=== PATIENT | male | born 1960 | race Hispanic/Latino ===

== ENCOUNTER 2020-02-09 01:03 | Inpatient (IN) | payer OTHER, SELFPAY ==
[2020-02-09] VITALS (21 sets, daily range): BP systolic 105–129; BP diastolic 59–81; PULSE 54–99; RESP 17–20; TEMP 35.8–36.8; O2SAT 96–100; BMI 28.8
--- NOTE | 2020-02-09 | EST_ITS ---
Patient Info Name: Anirudh Phelan Age: 59 years : 1960 Gender: Male Ht: 66 in Wt: 179 lbs BSA: 1.97 m2 Exam Date: 02/09/2020 3:01 PM Exam Location: [facility] Stress Patient Status: Inpatient Admit Date: 02/09/2020 Staff Ordering Physician: Obey Boudreaux MD Attending Provider: Marcela Sloan DO Exercise Technologist: Katja Thornton RDCS Exam Type: CA stress drea w NM Study Info Indications R07.9 - Chest pain, unspecified A regadenoson stress test was performed. Summary 1. Please correlate with nuclear medicine images, reported separately. 2. No abnormal ST-T wave changes with lexiscan. Protocol: Lexiscan Stress ECG Details Stage: REST Duration (min): 1 min : 1 sec HR (bpm): 68 SBP (mmHg): 121 DBP (mmHg): 75 Stage: REST Duration (min): 1 min : 58 sec HR (bpm): 88 SBP (mmHg): 121 DBP (mmHg): 75 Stage: STAGE 1 Duration (min): 0 min : 59 sec HR (bpm): 103 SBP (mmHg): 134 DBP (mmHg): 74 Stage: RECOVERY Duration (min): 1 min : 0 sec HR (bpm): 86 SBP (mmHg): 137 DBP (mmHg): 72 Stage: RECOVERY Duration (min): 2 min : 0 sec HR (bpm): 82 SBP (mmHg): 137 DBP (mmHg): 72 Stage: RECOVERY Duration (min): 3 min : 0 sec HR (bpm): 92 SBP (mmHg): 128 DBP (mmHg): 77 Stage: RECOVERY Duration (min): 3 min : 54 sec HR (bpm): 83 SBP (mmHg): 128 DBP (mmHg): 77 Rest HR: 88 bpm Peak HR: 103 bpm Rest Sys BP: 121 mmHg Peak Sys BP: 137 mmHg Max Pred HR: 163 bpm % Max Pred HR: 63 % Target HR: 139 bpm Max RPP: 14,111 bpm*mmHg Target HR Summary: Hemodynamic response to exercise was normal BP Response: Normal blood pressure response Termination Reason: Completed protocol Cardiac Symptoms: None Total Time: 1 min : 0 sec Rest Rivas BP: 75 mmHg Peak Rivas BP: 72 mmHg Total Dose: 0.4 mg Resting ECG Normal sinus rhythm - normal ECG. Stress ECG No abnormal ST/T wave changes with exercise. Arrhythmias None. Report Signatures
--- NOTE | ~2020-02-09 | NM_ITS ---
EXAMINATION: NM drea stress w perfusion DATE: 02/09/2020 16:01 INDICATION: Chest pain, stenting in 2018 TECHNIQUE: Rest images were obtained following intravenous administration of 9 mCi Tc99m tetrofosmin (Myoview). The patient was infused intravenously with Lexiscan (regadenoson). Then, 27 mCi Tc99m tetr ofosmin (Myoview) was administered intravenously, and stress images were obtained. Data was reconstru cted into short axis and horizontal and vertical long axis SPECT images. Gated SPECT images were also obtained. COMPARISON: None. FINDINGS: There is a moderate size reversible perfusion abnormality in the lateral wall of the left v entricle. There is no segmental wall motion abnormality. Left ventricular ejection fraction measure s 58%. IMPRESSION: 1. Moderate reversible perfusion in the lateral wall of the left ventricle. 2. Mildly decreased left ventricular ejection fraction measuring 58%. Reviewed, dictated and finalized at location A.
--- NOTE | ~2020-02-09 | XR_ITS ---
EXAMINATION: XR chest 2V DATE: 02/09/2020 01:40 INDICATION: Chest pain. TECHNIQUE: Frontal and lateral views of the chest were obtained. COMPARISON: Chest 2 views 08/20/2018 FINDINGS: The chest demonstrates clear lungs without pneumonia, pleural effusion, or pneumothorax. Th e heart size is normal. IMPRESSION: 1. No acute cardiopulmonary disease. Reviewed, dictated and finalized at location A.
--- NOTE | 2020-02-09 01:06 | ECG_ITS ---
Measurements Intervals [place] Rate: 64 P: 12 MA: 184 QRS: -21 QRSD: 83 T: 12 QT: 367 QTc: 379 Interpretive Statements SINUS RHYTHM NONSPECIFIC ST ELEVATION IN ANTERIOR LEADS- PROBABLY EARLY REPOLARIZATION BORDERLINE T WAVE ABNORMALITY- INFERIOR LEADS BASELINE WANDER- I, III, V4-V5 BORDERLINE ECG Electronically Signed On 02-09-2020 6:44:52 CDT by Alex Ortiz D.O.
[2020-02-09 01:18] LABS: Basophils Percent Auto 0.5 % (0.2-1.2); Eosinophils Absolute Auto 0.3 K/mm3 (0-0.3); Eosinophils Percent Auto 3.4 % (0-4.4); Hematocrit 44.6 % (42.0-52.0); Hemoglobin 14.8 g/dL (14.0-18.0); Immature Granulocyte Absolute 0.04 K/mm3 (0.00-0.031); Immature Granulocyte Percent A 0.5 % (0-0.5); Lymphocytes Absolute Auto 2.24 K/mm3 (0.9-3.2); Lymphocytes Percent Auto 30.7 % (18.3-44.2); Mean Corpuscular HGB Conc 33.2 g/dl (32-36); Mean Corpuscular Hemoglobin 28.4 pg (26-34); Mean Corpuscular Volume 85.6 fl (80-100); Mean Platelet Volume 10.2 fl (7.4-10.4); Monocytes Absolute Auto 0.6 K/mm3 (0.1-0.6); Monocytes Percent Auto 8.1 % (2.6-8.5); Neutrophils Absolute Auto 4.1 K/mm3 (1.3-6.7); Neutrophils Percent Auto 56.8 % (45.5-73.1); Platelet Count Result 212 k/mm3 (150-375); Red Blood Count 5.21 M/mm3 (4.6-6.20); Red Cell Distribution Width 12.1 % (11.5-14.5); White Blood Count 7.3 K/mm3 (4.5-10.0)
[2020-02-09 01:27] LABS: INR 0.9; Prothrombin Time 11.5 Seconds (11.1-14.7)
[2020-02-09 01:34] LABS: Anion Gap 6 mmol/L (8-16); Blood Urea Nitrogen 16 mg/dL (9-20); Calcium 9.1 mg/dL (8.4-10.2); Carbon Dioxide 28 mmol/L (22-30); Chloride 101 mmol/L (98-107); Estimated CRCL calculation 80 ml/min; Estimated Glomerular Filt Rate > 60; Glucose 264 mg/dL (75-110); Potassium 3.3 mmol/L (3.4-5.0); Sodium 135 mmol/L (137-145)
[2020-02-09 01:45] LABS: Troponin I < 0.012 ng/mL (0.000-0.034)
--- NOTE | 2020-02-09 02:15 | ED.CHESTPAIN ---
HPI - Chest Pain General Chief Complaint: Chest Pain Stated Complaint: cp Time Seen by Provider: 02/09/20 02:14 Source: patient Mode of arrival: ambulatory Limitations: no limitations History of Present Illness MD complaint: chest pain and chest discomfort Onset (ago): hour(s) (2) Prior episodes: No Onset: during rest Pain location: substernal Pain radiation: none Severity: moderate Quality: tightness Relieving factors: nothing Exacerbating factors: nothing Associated symptoms: palpitations Treatment prior to arrival: none Related Data Home Medications Medication Instructions Recorded Confirmed aspirin [Aspirin Childrens] 81 mg PO DAILY 02/09/20 atorvastatin 80 mg PO HS 02/09/20 cyclobenzaprine 10 mg PO BID PRN 02/09/20 insulin detemir U-100 [Levemir 28 unit SUBCUT HS 02/09/20 FlexTouch U-100 Insuln] metformin 1,000 mg PO BID 02/09/20 nitroglycerin 0.4 mg SUBLINGUAL Q5M PRN 02/09/20 Allergies Allergy/AdvReac Type Severity Reaction Status Date / Time No Known Allergies Allergy Unknown Unverified 08/20/18 19:33 Review of Systems Review of Systems: All systems reviewed & are unremarkable except as noted in HPI and below Constitutional: Constitutional: Denies body ache(s), Denies chills, Denies excessive sweating, Denies fatigue, Denies fever(s), Denies headache(s), Denies lethargy, Denies malaise, Denies weakness and Denies weight loss Eyes: Eyes: Denies blurry vision, Denies change in vision and Denies loss of vision ENT: Denies dizziness, Denies ear discharge, Denies headache(s), Denies lip swelling, Denies epistaxis, Denies nasal congestion, Denies neck pain, Denies throat swelling and Denies tongue swelling Cardiovascular: Cardiovascular: Denies chest pain at rest, Denies chest pain with activity, Denies diaphoresis, Denies rapid heart rate, Denies edema, Denies irregular heart rhythm, Denies lightheadedness, Denies palpitations and Denies dyspnea on exertion Respiratory: Respiratory: Denies chest congestion, Denies cough and Denies hemoptysis Gastrointestinal: Gastrointestinal: Denies abdominal pain, Denies melena, Denies hematochezia, Denies diarrhea, Denies nausea, Denies vomiting and Denies hematemesis Musculoskeletal: Musculoskeletal: Denies abnormal gait, Denies deformity, Denies joint swelling, Denies limited range of motion, Denies neck pain and Denies numbness Neurologic: Denies Abnormal speech present, Denies abnormal gait, Denies confusion, Denies dizziness, Denies headache(s), Denies focal weakness, Denies loss of vision, Denies numbness, Denies Other visual disturbances, Denies Sensory deficit (Neuro) and Denies weakness Psychiatric: Psychiatric: Denies confusion, Denies depression, Denies auditory hallucinations, Denies homicidal ideation and Denies suicidal ideation Endocrine: Endocrine: Denies cold intolerance, Denies excessive sweating, Denies fatigue, Denies heat intolerance and Denies palpitations Hematologic/Lymphatic: Hematologic/Lymphatic: Denies easy bleeding and Denies easy bruising Allergic/Immunologic: Allergic/Immunologic: Denies lip swelling, Denies throat swelling and Denies tongue swelling Exam Const: General: cooperative, healthy appearing, comfortable, no acute distress, well developed, alert and awake; No confusion Orientation/consciousness: oriented to person, oriented to place, oriented to time, patient oriented x3 and No confusion Limitations: no limitations HENMT: Head: normal to inspection, normocephalic and atraumatic Ears: hearing grossly normal bilaterally, TM normal on the right and TM normal on the left General nose exam: Normal external nose present, Normal nares present and No nasal discharge present Face and sinus: normal facial exam Mouth: Yes Normal oral and palatal mucosa present, Yes lip normal, Yes tongue normal and Yes oropharynx normal Throat: posterior oropharynx normal, tonsils normal and uvula midline Eyes: General: appearance normal, both eye
--- NOTE | 2020-02-09 04:10 | PC.NURSE ---
called [facility] to transport patient. ETA [phone]
[2020-02-09] MEDS: NITROGLYCERIN OINTMENT 1 INCH DOSE TRANSDERM (04:48)
[2020-02-09 05:23] LABS: Troponin I < 0.012 ng/mL (0.000-0.034)
--- NOTE | 2020-02-09 06:30 | ADMGEN ---
This patient, Anirudh Phelan, was admitted to IMU Room 213621. Patient/family oriented to hospital policies and general routines including ID bracelet, bed and alarms, visiting hours, pain management, procedures, bathroom and other care routines, personal items, smoking policy, room service/diet, and visiting hours. Valuables list has been completed. Information on how to activate the Rapid Response Team has been discussed. Patient/Family are encouraged to report perceived risks to care and to ask questions if they do not understand what they are told or what they should do.
[2020-02-09 07:42] LABS: Glucose Point of Care 179 (65-105)
[2020-02-09 08:17] LABS: Troponin I < 0.012 ng/mL (0.000-0.034)
--- NOTE | 2020-02-09 09:00 | PM.IMHP ---
H&P: HPI History of Present Illness Date/Time: 02/09/20 09:00 Chief complaint: Chest Pain Narrative: Date of visit 02/08 830. Anirudh Phelan is a 59 year old male status post stenting to the circumflex artery 12/04 with essentially normal other arteries who was awakened from sleep with substernal burning sensation radiating toward his left shoulder accompanied by mild shortness of breath and heart racing. He took 2 nitroglycerin 5 minutes apart and pain was little bit better but was concerned and called EMS. But time he arrived emergency room his pain has subsided. He thinks the nitroglycerin were probably old but he did get a mild headache. Never has reflux or GI symptoms. Cannot totally relate if it was the same kind of discomfort he had when he was stent was placed in 2018. he does admit to not taking his aspirin or statin and had been on a beta-nikky post stent but none for some time. 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 or chest discomfort Review of Systems Review of Systems: Narrative: constitutional weight steady appetite good no fever no chills Eye no double vision or scotoma mouth no pharyngitis laryngitis pulmonary no shortness of breath wheezing or cough CV as above no edema some no dysuria no hematuria muscle skeletal no particular joint discomfort GI no melena medication diarrhea neuropsych no seizures no syncope integument no skin breakdown did have a contact dermatitis rash in left leg psych no depression PMFSH Past Medical History Medical History (Updated 02/09/20 @ 09:14 by Obey Boudreaux MD) Tear of pronator muscle of left upper extremity Surgical History Surgical History (Updated 02/09/20 @ 09:06 by Obey Boudreaux MD) Stented coronary artery Family History Family History (Updated 02/09/20 @ 06:37 by Judie Dwyer RN) Father , age 65 Kidney failure Sibling Diabetes mellitus Social History Social History Smoking status: Former smoker Smoking end date: 11/06/16 Alcohol intake: current Drinks per week: 6 Substance use: never Substance use type: does not use Gender identity (if verbalized by the patient): Male Spiritual care concerns: No Meds Home Medications and Allergies Home Medications Medication Instructions Recorded Confirmed Type aspirin [Aspirin Childrens] 81 mg PO DAILY 02/09/20 02/09/20 History atorvastatin 80 mg PO HS 02/09/20 02/09/20 History insulin detemir U-100 [Levemir 28 unit SUBCUT HS 02/09/20 02/09/20 History FlexTouch U-100 Insuln] metformin 1,000 mg PO BID 02/09/20 02/09/20 History nitroglycerin 0.4 mg SUBLINGUAL Q5M PRN 02/09/20 02/09/20 History Allergies Allergy/AdvReac Type Severity Reaction Status Date / Time No Known Allergies Allergy Unknown Unverified 08/20/18 19:33 Vital Signs Vital Signs - 24 hr 02/09/20 01:12 02/09/20 02:27 02/09/20 02:30 Temperature 36.4 C L Pulse Rate 69 59 L 58 L Respiratory Rate 18 18 Blood Pressure 129/72 114/80 Pulse Oximetry 100 96 98 02/09/20 03:15 02/09/20 04:43 02/09/20 05:15 Temperature 36.8 C Pulse Rate 56 L 54 L 59 L Respiratory Rate 17 17 17 Blood Pressure 116/78 115/81 110/81 Pulse Oximetry 96 99 97 02/09/20 06:28 02/09/20 06:30 02/09/20 06:54 Temperature 36.6 C Pulse Rate 68 63 68 Respiratory Rate 20 20 Blood Pressure 115/60 Pulse Oximetry 98 98 02/09/20 08:14 Temperature 35.8 C L Pulse Rate 66 Respiratory Rate 18 Blood Pressure 115/70 Pulse Oximetry 100 Exam Narrative: Exam Narrative: blood pressure 114/70 pulse 66 route cooler respiration 18 per minute saturating 100% on room air afebrile pupils equal reactive light sclera anicteric mouth normal neck is supple no adenopathy thyromegaly carotid bruits lungs clear CV regular rate rhythm no murmurs or gallops abdomen soft nontender bowel sounds normal active extremities without
[2020-02-09] MEDS: POTASSIUM CHLORIDE 20 MEQ TABLET 40 MEQ PO (09:33)
[2020-02-09] MEDS: ASPIRIN 81 MG CHEWABLE TABLET PO (09:39)
[2020-02-09 11:16] LABS: Troponin I < 0.012 ng/mL (0.000-0.034)
[2020-02-09 16:37] LABS: Glucose Point of Care 116 (65-105)
[2020-02-09 20:10] LABS: Glucose Point of Care 228 (65-105)
[2020-02-09] MEDS: INSULIN DETEMIR 100 UNITS/ML 28 UNITS SUB-Q (21:26)
[2020-02-09] MEDS: ATORVASTATIN 40 MG TABLET 80 MG PO (21:26)
[2020-02-10] VITALS (34 sets, daily range): BP systolic 88–122; BP diastolic 52–82; PULSE 31–84; RESP 12–18; TEMP 36.2–36.9; O2SAT 96–100
[2020-02-10 07:55] LABS: Glucose Point of Care 148 (65-105)
--- NOTE | 2020-02-10 09:29 | PM.CNCAR ---
Assessment and Plan Additional Plan 59-year-old man who is known to have coronary disease had interventional revascularization of his mid circumflex at the OM/posterior bifurcation 2 years ago. He presents with symptoms that are reminiscent of that event fortunately his troponins are negative but his nuclear stress test suggested ischemic defect in the same vascular distribution. For this reason follow-up angiography has been recommended. The patient is agreeable to proceed with that shortly this morning. Cali Núñez MD [facility] History of Present Illness History of Present Illness Consult date/time: Date of service:02/10/20 09:29 Consult reason: chest pain Reason For Visit: Chest Pain Narrative: This is a 59-year-old man of seeing at the request of the hospitalist today because of some chest pain and abnormalities noted yesterday on a nuclear stress test. The patient is known to have coronary artery disease and follows with Dr. Iniguez of our practice. He noted the onset of some retrosternal to left precordial chest heaviness the night before last while he was in bed. The discomfort mild but he says reminiscent in character of previous ischemic chest pain that he experienced about 2 years ago. The symptom was not associated with any diaphoresis nausea vomiting or shortness of breath. It waxed and waned but because of this he did not wish to take any chances so he came to the emergency room for evaluation in the emergency room he was given some nitroglycerin he says the pain faded away it was unclear to him if it resolved because of the nitroglycerin or was resolving on its own. He was admitted for further evaluation and management. His electrocardiograms were unremarkable his biomarkers have been normal x4 sets. He has a history of coronary artery disease presenting initially in November of 2017 with acute coronary syndrome. At that time he had significant ischemic chest pain his electrocardiogram was benign he did have a rise in his troponin up to 25. He underwent angiography the following day and was found to have a high-grade stenosis in the mid circumflex at a bifurcation site of the OM and the posterior branch he underwent stenting of this with a 3 x 18 mm Xience device with good anatomical result. He has been doing well since then his follow-up appointments in the office have been with the nurse practitioner according to those notes he has been doing fairly well. After he presented with the symptoms he had a Lexiscan nuclear stress test on yesterday which according to the radiology report shows and reversible ischemic defect in the lateral wall. As a result of this I recommended to the patient proceeding with a follow-up angiogram since this result calls into question the result of his circumflex intervention. Review of Systems Constitutional: Constitutional: Reports no additional constitutional complaints Eyes: Eyes: Reports no additional eye complaints ENT: Reports system reviewed and no additional complaints, except as documented Cardiovascular: Cardiovascular: Reports as per HPI and Reports chest pain Respiratory: Respiratory: Reports no additional respiratory complaints Gastrointestinal: Gastrointestinal: Reports no additional gastrointestinal complaints Musculoskeletal: Musculoskeletal: Reports no additional musculoskeletal complaints Integumentary/Breasts: Skin/Breast: Reports system reviewed and no additional complaints, except as docu Neurologic: Reports system reviewed and no additional complaints, except as documented Endocrine: Endocrine: Reports no additional endocrine complaints Hematologic/Lymphatic: Hematologic/Lymphatic: Reports no additional hematologic/lymphatic complaints Allergic/Immunologic: Allergic/Immunologic: Reports no additional allergic/immunologic complaints [facility] Past Medical History Medical History (Updated 02/09/20 @ 09:14 by Obey Boudreaux MD) Tear of pronator muscle of left upper
[2020-02-10] MEDS: ASPIRIN 81 MG CHEWABLE TABLET PO (09:34)
--- NOTE | 2020-02-10 09:34 | WPDMODSED ---
Moderate Sedation Note-Pt Data Patient Data Diagnosis: coronary artery disease with previous circumflex PCI chest pain event reminiscent of previous ischemia abnormal nuclear stress test Present Complaint: 59-year-old man with previous circumflex intervention in November of 2017 in the setting of non ST elevation [place]. He presents with an episode of pain that is reminiscent of that and a nuclear stress test suggesting ischemia in this vascular distribution Procedure to be performed/Plan: follow-up coronary angiogram Allergies Allergy/AdvReac Type Severity Reaction Status Date / Time No Known Allergies Allergy Unknown Unverified 08/20/18 19:33 Home Medications Medication Instructions Recorded Confirmed Type aspirin [Aspirin Childrens] 81 mg PO DAILY 02/09/20 02/09/20 History atorvastatin 80 mg PO HS 02/09/20 02/09/20 History insulin detemir U-100 [Levemir 28 unit SUBCUT HS 02/09/20 02/09/20 History FlexTouch U-100 Insuln] metformin 1,000 mg PO BID 02/09/20 02/09/20 History nitroglycerin 0.4 mg SUBLINGUAL Q5M PRN 02/09/20 02/09/20 History Current Medications: Active Medications Acetaminophen (Tylenol Tablet) 650 mg PO Q6H PRN PRN Reason: Mild Pain (1-3) or Fever Aspirin (Aspirin Chewable) 81 mg PO DAILY [facility] Last Admin: 02/09/20 09:39 Dose: 81 mg Documented by: Atorvastatin Calcium (Lipitor) 80 mg PO HS [facility] Last Admin: 02/09/20 21:26 Dose: 80 mg Documented by: Insulin Detemir (Levemir) 28 units SUB-Q [facility] Last Admin: 02/09/20 21:26 Dose: 28 units Documented by: Nitroglycerin (Nitrostat Subl 0.4 Mg (1/150)) 0.4 mg SUBLINGUAL Q5M PRN PRN Reason: Chest Pain Sedation/Anesthesia: No previous sedation/anesthesia problems (including family history). [facility] Past Medical History Medical History (Updated 02/09/20 @ 09:14 by Obey Boudreaux MD) Tear of pronator muscle of left upper extremity Surgical History Surgical History (Updated 02/09/20 @ 09:06 by Obey Boudreaux MD) Stented coronary artery Family History Family History (Updated 02/09/20 @ 09:07 by Obey Boudreaux MD) Father , age 65 Kidney failure Sibling Diabetes mellitus Social History Social History Smoking status: Former smoker Smoking end date: 11/06/16 Alcohol intake: current Drinks per week: 6 Substance use: never Substance use type: does not use Gender identity (if verbalized by the patient): Male Spiritual care concerns: No Mod Sed Physical Exam Physical Exam Pre Procedural Exam: Normal: Appearance, Neck, Throat, Airway, Lungs, Heart Size, Heart Rate, Heart Rhythm, Neuro Exam and Extremities and Variation: Appearance Hours since solid foods: 14 Hours since liquid intake: 14 Internal Medicine - PN: Obj Da Vital Signs Vital Signs: Vital Signs - 24 hr 02/09/20 10:00 02/09/20 12:00 02/09/20 12:50 Temperature 36.1 C L Pulse Rate 60 58 L 64 Respiratory Rate 20 Blood Pressure 105/61 Pulse Oximetry 96 02/09/20 14:00 02/09/20 16:33 02/09/20 16:48 Temperature 36.4 C Pulse Rate 64 72 64 Respiratory Rate 20 Blood Pressure 113/75 Pulse Oximetry 100 02/09/20 18:00 02/09/20 20:00 02/09/20 22:00 Temperature 36.5 C Pulse Rate 62 67 71 Respiratory Rate 20 Blood Pressure 113/59 L Pulse Oximetry 97 02/09/20 23:51 02/10/20 00:00 02/10/20 02:00 Temperature 36.5 C Pulse Rate 99 62 61 Respiratory Rate 18 18 Blood Pressure 128/78 Pulse Oximetry 99 99 02/10/20 04:00 02/10/20 06:00 02/10/20 08:00 Temperature 36.6 C 36.9 C Pulse Rate 56 L 54 L 66 Respiratory Rate 18 16 Blood Pressure 120/79 119/79 Pulse Oximetry 99 98 Intake/Output Intake/Output: Intake & Output 02/07/20 02/08/20 02/09/20 02/10/20 23:59 23:59 23:59 23:59 Intake Total 360 350 Output Total 800 Balance 360 -450 Meds/Results Medications: Active Medications Generic Name Dose Route Start Last Admin Trade Name Freq PRN Reason Stop D
--- NOTE | 2020-02-10 10:21 | PC.NURSE ---
0925- To cardiac supervisor cytogenetic laboratory for procedure via stetcher accompanied by RN's
--- NOTE | 2020-02-10 10:40 | ECG_ITS ---
Measurements Intervals [place] Rate: 56 P: 33 [place]: 185 QRS: -14 QRSD: 91 T: -6 QT: 400 QTc: 389 Interpretive Statements SINUS BRADYCARDIA EARLY PRECORDIAL R/S TRANSITION BORDERLINE T WAVE ABNORMALITY- INFERIOR LEADS BORDERLINE ECG Electronically Signed On 02-10-2020 12:18:16 CDT by Alex Ortiz D.O.
--- NOTE | 2020-02-10 10:43 | WPDCARDPROC ---
Cardiac Cath Procedure Note Date of procedure:: 02/10/20 Performing physician:: Cali Núñez MD Indication:: coronary artery disease with recurrent ischemic chest pain abnormal nuclear stress test indicating ischemia in the distribution of the circumflex, vessel intervened upon 2 years ago Brief clinical history:: this is a 59-year-old man with coronary disease received stent to the mid circumflex November of 2017. He came in with chest pain that is similar to his previous ischemic symptoms from that admission. The patient has no abnormalities of troponin and had a nuclear stress test yesterday with evidence of ischemia in the distribution of the circumflex. Procedure Procedure performed:: Coronary angiography PCI to the circumflex proximal to previous stent Sedation/Medication given:: fentanyl 50 mg Versed 2 mg case start time 10:04 a.m. case end time 10:37 a.m. sedation provided by Luciana Wood RN, trained observer Access site:: right femoral Estimated blood loss:: 15-20 cc Procedure note:: patient was brought to the cardiac catheterization lab in the postabsorptive state the right femoral triangle was prepared and draped in the usual sterile fashion anesthesia was provided with 1% lidocaine infiltrated locally using the modified Seldinger technique the right femoral artery was punctured and a 5 Nigerien vascular sheath was placed. I then engage inject the right coronary artery using a 5 Nigerien WRP catheter. The left coronary was engaged and injected using a 5 Nigerien JL4 catheter. Following this the cineangiograms were reviewed. PCI of the circumflex was recommended and carried out as detailed below. Prior to PCI the patient had the 5 Nigerien sheath changed over a guidewire for a 6 Nigerien. He was systemically anticoagulated with Angiomax and received a loading dose of 600 mg clopidogrel in the seed analysis laboratory assistant. Following the procedure the sheath was sutured into position he was taken to the holding area for post PCI recovery and sheath removal. Findings:: Central aortic pressure is 1 14/72. the left ventricle was not entered during this procedure the left main coronary artery is widely patent and of large caliber the LAD is a large caliber vessel extending down to around the apex the LAD and its branches are free of significant disease. There are minimal luminal irregularities noted in the mid LAD. The circumflex is a large caliber vessel giving rise to a very large OM branch and a posterior branch. The area stented was at the bifurcation of the posterior branch and the OM which remains widely patent with no loss of lumen. There is a modest stenosis angiographically prior to this stented area the region of some tortuosity. In the MERAZ caudal projection it appears to be hazy angiographically. In the regions where the vessel is well displayed it appears to have approximately 40%- 50% stenosis. The decision was made to intervene on this lesion since the patient has ischemic symptoms similar to his previous symptomatology and nuclear stress test findings yesterday indicating that this appears to be flow limiting despite is angiographically modest appearance. The left coronary artery was engaged using a 6 Nigerien CLS 3.5 guiding catheter I used a 0.014 BMW guidewire to wire the circumflex. The lesion was pre-dilated with a 3 x 20 mm emerge balloon and then stented using a 3.5 x 18 mm course 0 drug-eluting stent overlapping the old 3 mm stent slightly and inflated to 8 atmospheres. At the end of this the target lesion was widely patent with no residual stenosis dissection or distal embolization. It should be noted that when the circumflex was studied at with the BMW wire in the vessel there was a high-grade ostial stenosis which was angiographically normal to begin with this indicates the presence of pseudo lesion due to the guidewire in a tortuous vessel. Upon withdrawal of the wire this lesion was no longer visible. Conclusio
--- NOTE | 2020-02-10 15:34 | SUR.PHASEII ---
1345 Pt having vagal response to sheath pull at 1335, IVF wide open, 1mg Atropine given for olman in the 30's, cool wash cloths applied to pts neck and forehead, manual pressure continued to R groin by RN, pedal pulse remains palpable. 1352 pt no longer symptomatic and states he feeling better, R groin pressure continued and pt monitored closely.
--- NOTE | 2020-02-10 15:48 | PM.IMPN ---
Progress Note: A&P Assessment and Plan (1) Chest pain: Qualifiers: Ischemic chest pain type: stable angina pectoris Code(s): R07.9 - Chest pain, unspecified Status: Acute Assessment and Plan: chest pain in a man with known coronary disease who was not been taking his aspirin her statin. Troponins and EKG are normal but nuclear stress test Revealed ischemia in the distribution of circumflex artery which was stented prior. As above repeat catheterization today revealed stenotic area proximal to the stent which was stented also restarted aspirin and statin 02/08 relative bradycardia so no beta-nikky has been started (2) Diabetes mellitus: Code(s): E11.9 - Type 2 diabetes mellitus without complications Status: Acute Assessment and Plan: patient not that compliant and states last A1c was around 9. Continue the Levemir and and sliding scale while here (3) Hyperlipidemia: Code(s): E78.5 - Hyperlipidemia, unspecified Status: Acute Assessment and Plan: restarted statin 02/08 Subjective Date/time seen: 02/10/20 15:48 Interval history: Date of visit 02/09. 59-year-old diabetic status post circumflex stent in 11/2017 presented with substernal chest pressure relieved after 2 nitroglycerin. Nuclear stress test revealed ischemia lateral wall in distribution of the circumflex stent. Taken to medical laboratory manager today and found to have patent stent but proximal to it was at least 50% stenotic area which was stented. Exam Narrative: Exam Narrative: blood pressure 114/76 pulse 68 respiration 18 per minute saturating 100% on room air afebrile pupils equal reactive light neck is supple lungs clear CV regular rate rhythm no murmurs or gallops abdomen soft nontender bowel sounds normal active extremities without edema distal pulses are 2+, dorsalis pedis posterior tibial neuro alert pleasant cooperative no focal deficits integument faint drying rash left anterior she and Objective Data Vital Signs Vital Signs: Vital Signs - 24 hr 02/09/20 16:33 02/09/20 16:48 02/09/20 18:00 Temperature 36.4 C Pulse Rate 72 64 62 Respiratory Rate 20 Blood Pressure 113/75 Pulse Oximetry 100 02/09/20 20:00 02/09/20 22:00 02/09/20 23:51 Temperature 36.5 C 36.5 C Pulse Rate 67 71 99 Respiratory Rate 20 18 Blood Pressure 113/59 L 128/78 Pulse Oximetry 97 99 02/10/20 00:00 02/10/20 02:00 02/10/20 04:00 Temperature 36.6 C Pulse Rate 62 61 56 L Respiratory Rate 18 18 Blood Pressure 120/79 Pulse Oximetry 99 99 02/10/20 06:00 02/10/20 08:00 02/10/20 10:55 Temperature 36.9 C 36.8 C Pulse Rate 54 L 66 57 L Respiratory Rate 16 18 Blood Pressure 119/79 122/76 Pulse Oximetry 98 96 02/10/20 11:00 02/10/20 11:15 02/10/20 11:30 Temperature Pulse Rate 59 L 57 L 56 L Respiratory Rate 15 16 15 Blood Pressure 122/76 117/70 112/77 Pulse Oximetry 96 97 97 02/10/20 11:45 02/10/20 12:00 02/10/20 12:30 Temperature Pulse Rate 52 L 55 L 54 L Respiratory Rate 12 13 15 Blood Pressure 116/68 111/79 118/79 Pulse Oximetry 99 98 100 02/10/20 13:35 02/10/20 13:40 02/10/20 13:45 Temperature Pulse Rate 58 L 57 L 58 L Respiratory Rate 14 14 15 Blood Pressure 110/76 99/70 L 110/71 Pulse Oximetry 100 98 98 02/10/20 13:50 02/10/20 13:55 02/10/20 14:00 Temperature Pulse Rate 31 L 84 71 Respiratory Rate 15 16 15 Blood Pressure 88/52 L 104/70 114/73 Pulse Oximetry 100 100 02/10/20 14:05 02/10/20 14:10 02/10/20 14:20 Temperature Pulse Rate 69 68 69 Respiratory Rate 16 15 14 Blood Pressure 112/72 113/70 122/78 Pulse Oximetry 98 100 99 02/10/20 14:25 02/10/20 14:30 02/10/20 14:35 Temperature Pulse Rate 69 67 67 Respiratory Rate 12 17 15 Blood Pressure 118/76 120/75 119/75 Pulse Oximetry 100 100 100 02/10/20 14:44 02/10/20 15:00 02/10/20 15:15 Temperature Pulse Rate 67 64 64 Respiratory Rate 15 14 1
[2020-02-10 17:02] LABS: Glucose Point of Care 96 (65-105)
[2020-02-10] MEDS: ATORVASTATIN 40 MG TABLET 80 MG PO (21:03)
[2020-02-10] MEDS: INSULIN DETEMIR 100 UNITS/ML 28 UNITS SUB-Q (21:03)
[2020-02-10 21:51] LABS: Glucose Point of Care 221 (65-105)
[2020-02-11] VITALS (9 sets, daily range): BP systolic 117–123; BP diastolic 65–79; PULSE 55–99; RESP 16–18; TEMP 36.3–36.7; O2SAT 95–99
--- NOTE | 2020-02-11 05:11 | ECG_ITS ---
Measurements Intervals [place] Rate: 67 P: 34 WA: 181 QRS: -10 QRSD: 87 T: 16 QT: 358 QTc: 378 Interpretive Statements SINUS RHYTHM EARLY PRECORDIAL R/S TRANSITION ST ELEVATION IN ANTERIOR LEADS- PROBABLY EARLY REPOLARIZATION BORDERLINE T WAVE ABNORMALITY- INFERIOR LEADS BASELINE ARTIFACT- I, II, III, AVL, AVF BORDERLINE ECG Electronically Signed On 02-11-2020 11:13:25 CDT by Alex Ortiz D.O.
[2020-02-11 06:00] LABS: Anion Gap 4 mmol/L (8-16); Blood Urea Nitrogen 16 mg/dL (9-20); Calcium 8.7 mg/dL (8.4-10.2); Carbon Dioxide 29 mmol/L (22-30); Chloride 104 mmol/L (98-107); Estimated CRCL calculation 103 ml/min; Estimated Glomerular Filt Rate > 60; Glucose 173 mg/dL (75-110); Sodium 137 mmol/L (137-145)
[2020-02-11 08:13] LABS: Glucose Point of Care 146 (65-105)
[2020-02-11] MEDS: CLOPIDOGREL BISULFATE 75 MG TABLET PO (08:36)
[2020-02-11] MEDS: ASPIRIN 81 MG CHEWABLE TABLET PO (08:36)
--- NOTE | 2020-02-11 09:58 | PM.PNCARD ---
Progress Note: A&P Assessment and Plan (1) CAD (coronary artery disease) of artery bypass graft: Code(s): I25.810 - Atherosclerosis of coronary artery bypass graft(s) without angina pectoris Status: Acute Assessment and Plan: Known coronary disease with interventional revascularization of his mid circumflex at the OM/posterior bifurcation 2017. He presented with symptoms that are reminiscent of that event. Taken to the cardiac catheterization lab by Dr. Núñez on 02/10/2020 with the findings of: Coronary artery disease with previously stented mid circumflex which remains widely patent at the target lesion. Angiographically mild to moderate disease prior to this with stented area which presumably is flow-limiting given his symptoms and nuclear stress test findings this was treated with 3.5 x 18 mm Orsiro drug-eluting stent. No new disease is noted in the left main, LAD or right coronary arteries. Monitored overnight. No further chest discomfort. No arrhythmias on the monitor. Right groin site was without swelling or bleeding. No femoral bruit. Distal pulses intact. Additional Plan OK to discharge from cardiac standpoint. See discharge instructions for follow-up. Plan discussed with Dr. Noble 1005 02/11/2020 Subjective Date/time seen: 02/11/20 09:58 Interval history: Follow up for: abnormal stress test, known coronary artery disease, status post cardiac catheterization and stent placement 02/10/2020 Date of service: 02/11/2020 Subjective: Denied chest pain, pressure, tightness or squeezing. No burning. Denied shortness of breath with exertional activity. Review of Systems Constitutional: Constitutional: Reports no additional constitutional complaints Eyes: Eyes: Reports no additional eye complaints ENT: Reports Normal hearing present and Denies epistaxis Cardiovascular: Cardiovascular: Denies chest pain, Denies rapid heart rate, Denies lightheadedness and Denies dyspnea Respiratory: Respiratory: Denies dyspnea Gastrointestinal: Gastrointestinal: Denies abdominal pain and Denies heartburn Musculoskeletal: Musculoskeletal: Denies myalgias Integumentary/Breasts: Skin/Breast: Denies erythema and Denies rash Neurologic: Reports Normal hearing present and Denies headache(s) Psychiatric: Psychiatric: Denies anxiety and Denies depression Endocrine: Endocrine: Denies fatigue and Denies flushing Hematologic/Lymphatic: Hematologic/Lymphatic: Denies easy bleeding and Denies easy bruising Allergic/Immunologic: Allergic/Immunologic: Denies wheezing Exam Const: General: comfortable and no acute distress HENMT: Mouth: Yes moist mucous membranes Eyes: Sclera: sclerae normal Pupils: Equal, round and reactive pupils present Neck: Neck: supple and no JVD Other: Carotid upstrokes are normal in character bilaterally there are no audible bruits Resp: Effort & Inspection: normal respiratory effort Auscultation: clear to auscultation bilaterally Cardio: Rate: regular rate Rhythm: regular rhythm GI: GI Palp: Yes Soft to palpation Auscultation: normal bowel sounds Skin: General skin exam: normal color Lesions: no lesions Rashes: no rashes Wounds: no wounds Neuro: General: patient oriented x3 Cranial nerves: Yes Equal, round and reactive pupils present Cognition (Neuro): normal cognition Extrem: General: normal to inspection and no clubbing, cyanosis or edema Other: Right groin site without swelling or bleeding. Stat seal in place. No femoral bruit. Distal pulses intact. Psych: Appearance: grossly normal Speech and movement: Normal speech and movement present Affect: normal affect Attitude: cooperative Thought process: Normal thought process present Thought content: Yes Normal thought content present Insight: Good insight present (Psych) Judgement: Good judgement present (Psych) Objective Data Vital Signs Vital Signs: Vital Sig
--- NOTE | 2020-02-11 17:44 | PM.DS ---
DS: Admitting Diagnosis Admitting Diagnosis Admitting Diagnosis: Chest Pain DS: Discharge Diagnosis Discharge Diagnosis (1) Chest pain: Qualifiers: Ischemic chest pain type: stable angina pectoris Code(s): R07.9 - Chest pain, unspecified Status: Acute Assessment and Plan: chest pain in a man with known coronary disease who was not been taking his aspirin her statin. Troponins and EKG are normal but nuclear stress test Revealed ischemia in the distribution of circumflex artery which was stented prior. repeat catheterization revealed stenotic area proximal to the stent which was stented also restarted aspirin and statin 02/08, now plavix too relative bradycardia so no beta-nikky has been started (2) Diabetes mellitus: Code(s): E11.9 - Type 2 diabetes mellitus without complications Status: Acute Assessment and Plan: patient not that compliant and states last A1c was around 9. Continue the Levemir and and sliding scale while here and resume metformin at home (3) Hyperlipidemia: Code(s): E78.5 - Hyperlipidemia, unspecified Status: Acute Assessment and Plan: restarted statin 02/08 DS: Summary Hospital Course Hospital Course: 59-year-old type 2 diabetic status post circumflex stent 12/04 presented with substernal chest pain that resolved 50 on arrival. Troponins were negative but nuclear stress test revealed ischemia and lateral wall compatible with area previous stent. Cardiac catheterization revealed patent stent but stenotic area proximal to the stent which was also stented. Resumed his aspirin, Plavix, statin, but no beta-nikky with his relative bradycardia. Will be off work for 1 week can return to see Dr. Iniguez 03/07 Time Spent with Patient Time attestation: Total time spent providing and/or coordinating discharge services: 35 minutes Exam Narrative: Exam Narrative: condition on discharge blood pressure 124/80 pulse 68 regular afebrile lungs clear CV no murmurs or gallops abdomen soft nontender extremities without edema dorsalis pedis posterior tibial 2+ up in about feeling well no further chest pain. discharged home in stable condition to return to work in 1 week with post catheterization restrictions for cardiology DS: Data Data Completed and Pending Labs on day of discharge: Labs from last 24 hours 02/11/20 02/11/20 02/10/20 08:09 04:47 20:59 Sodium 137 Potassium 4.0 Chloride 104 Carbon Dioxide 29 Anion Gap 4 L BUN 16 Creatinine 0.70 Estim Creat Clear Calc 103 Estimated GFR > 60 Glucose 173 H POC Capillary Glucose 146 H 221 H Calcium 8.7 Discharge Plan Discharge Attending physician on discharge: Obey Boudreaux Consulting providers: Cali Núñez Discharging Clinician: Obey Boudreaux Patient Disposition: Home, Self-Care Activity: other - see discharge instructions Diet: heart healthy and diabetic Wound Care Instructions: other - see discharge instructions Discharge Instructions: CARDIOLOGY DISCHARGE INSTRUCTIONS: ACTIVITY: No driving until Wednesday, February 12, 2020. This is for short distances only. No lifting, pushing or pulling more than 10 pounds for 1 week. No strenuous exercise or activity(including sexual activity) for 1 week. You may go up the steps to your bedroom. May shower but no tub baths or swimming pool for 1 week. Avoid commercial hot tubs. They are too hot. DO NOT STOP YOUR MEDICATIONS! ONLY YOUR PROJECT CONTROLLER CAN STOP THE FOLLOWING MEDICATIONS: Aspirin Clopidogrel Atorvastatin PLEASE CALL THE OFFICE IF THESE MEDICATIONS NEED TO BE STOPPED Keep your stent card in your wallet at all times Read food labels for high levels of sodium, no added salt, avoid fried foods, eat more fruits and vegetables. Stay hydrated. If you have chest pain unrelieved by nitroglycerin call [address] t
== END 2020-02-11 11:10 | disposition home or self-care (01) | DRG 247 ==
LOC: ANHED 04:28 → ANHIMU 06:25
PROVIDERS: Specialist; Admitting Provider Internal Medicine; Emergency Provider Emergency Medicine; PCP Physician Assistant; Visit Provider Internal Medicine
PROC: 027034Z Dilation of Coronary Artery, One Artery with Drug-eluting Intraluminal Device, Percutaneous Approach (ICD-10-PCS; CPT 93454; principal; 2020-02-10 09:55)
PROC: 027034Z Dilation of Coronary Artery, One Artery with Drug-eluting Intraluminal Device, Percutaneous Approach (ICD-10-PCS; CPT 92928; 2020-02-10 09:55)
DX: I25.118 Atherosclerotic heart disease of native coronary artery with other forms of angina pectoris (principal); E11.9 Type 2 diabetes mellitus without complications; E78.5 Hyperlipidemia, unspecified; Z23 Encounter for immunization; Z87.891 Personal history of nicotine dependence; I25.2 Old myocardial infarction; Z95.5 Presence of coronary angioplasty implant and graft; Z91.14 Patient's other noncompliance with medication regimen
CPT/HCPCS: 36415; 71046; 78452; 80048; 84484; 85025; 85610; 85730; 90471; 90686; 93005; 93017; 93454; 99285; A9270; A9502; C1725; C1769; C1874; C1887; C1894; C9600; G0008; G0378; J0461; J0583; J1644; J1815; J2250; J2785; J3010; J7030; J7040

== ENCOUNTER 2022-11-04 13:45 | Emergency (ER) | payer OTHER, SELFPAY ==
--- NOTE | ~2022-11-04 | XR_ITS ---
EXAMINATION: XR chest 2V 11/04/2022 14:46 INDICATION: Cough for 3 weeks PROCEDURE: 2 view chest COMPARISON: 02/09/2020 FINDINGS: The lungs are clear. The cardiomediastinal silhouette is within normal limits. There are no pleural effusions. There is no pneumothorax suspected. IMPRESSION: 1: NO ACUTE CARDIOPULMONARY DISEASE. Reviewed, dictated and finalized at location A.
--- NOTE | 2022-11-04 14:08 | ED.URI ---
HPI - URI/Sore Throat General Chief Complaint: Upper Respiratory Infection Stated Complaint: cough Time Seen by Provider: 11/04/22 14:30 Source: patient, RN notes reviewed and old records reviewed Mode of arrival: ambulatory Limitations: no limitations History of Present Illness HPI Narrative: 61-year-old male presents to the [facility] with a 3 week cough, states when he gets coughing fit become short of breath. Denies any chest pain. Patient is a diabetic but does not take his blood sugar really. Patient states 1st week of symptoms, 3 weeks ago he had a subjective fevers. But nothing since. No treatment prior to States he is able to lay back without issue, no shortness of breath. Related Data Home Medications Medication Instructions Recorded Confirmed aspirin 81 mg chewable tablet 81 mg PO DAILY 02/09/20 11/04/22 (Aspirin Childrens) atorvastatin 80 mg tablet 80 mg PO HS 02/09/20 11/04/22 insulin detemir U-100 100 unit/mL 28 unit subcut HS 02/09/20 11/04/22 (3 mL) subcutaneous pen (Levemir FlexTouch U-100 Insulin) metformin 1,000 mg tablet 1,000 mg PO BID 02/09/20 11/04/22 liraglutide 0.6 mg/0.1 mL (18 mg/3 0.6 mg subcut DAILY 11/04/22 11/04/22 mL) subcutaneous pen injector (Victoza 3-Denis) metoprolol succinate 25 mg 25 mg PO DAILY 11/04/22 11/04/22 tablet,extended release 24 hr Allergies Allergy/AdvReac Type Severity Reaction Status Date / Time No Known Allergies Allergy Unknown Verified 11/04/22 14:06 Review of Systems Review of Systems: All systems reviewed & are unremarkable except as noted in HPI and below Constitutional: Constitutional: Reports no additional constitutional complaints Eyes: Eyes: Reports no additional eye complaints ENT: Reports system reviewed and no additional complaints, except as documented Cardiovascular: Cardiovascular: Reports no additional cardiovascular complaints, Denies chest pain and Denies dyspnea Respiratory: Respiratory: Reports as per HPI, Denies chest congestion, Reports cough and Reports dyspnea Gastrointestinal: Gastrointestinal: Reports no additional gastrointestinal complaints, Denies abdominal pain, Denies nausea and Denies vomiting Musculoskeletal: Musculoskeletal: Reports no additional musculoskeletal complaints Integumentary/Breasts: Skin/Breast: Reports system reviewed and no additional complaints, except as docu Neurologic: Reports system reviewed and no additional complaints, except as documented Psychiatric: Psychiatric: Reports no additional psychiatric complaints Allergic/Immunologic: Allergic/Immunologic: Reports no additional allergic/immunologic complaints PMFSH Past Medical History Medical History (Updated 11/04/22 @ 19:40 by Angela Sharpe APRN) CAD (coronary artery disease) of artery bypass graft Diabetes mellitus Hyperlipidemia Tear of pronator muscle of left upper extremity Surgical History Surgical History Stented coronary artery Family History Family History Father , age 65 Kidney failure Sibling Diabetes mellitus Social History Social History Smoking status: Former smoker Smoking end date: 11/06/16 Alcohol intake: current Drinks per week: 6 Substance use: never Substance use type: does not use Gender identity (if verbalized by the patient): Male Spiritual care concerns: No Comments At the time of my signature, I reviewed and agree with the nursing past medical, surgical, social, and family history. There is no relevant family history pertinent to the patient complaint. Exam Const: General: cooperative, healthy appearing, comfortable, no acute distress, well developed, alert and well nourished Nutritional Appearance: well nourished Orientation/consciousness: patient oriented x3 Limitations: no limitations HENMT:
[2022-11-04 14:15] VITALS: BP 133/78; PULSE 69; RESP 16; TEMP 37.1; O2SAT 97
[2022-11-04 14:35] LABS: Glucose Point of Care 315 mg/dl (65-105)
[2022-11-04] MEDS: IPRATROPIUM BR 0.02% INH SOLN 0.5 MG/2.5 ML VIAL INHALATION (14:48)
[2022-11-04] MEDS: ALBUTEROL SULFATE NEB 2.5 MG/3 ML INH INHALATION (14:48)
== END 2022-11-04 15:37 | disposition home or self-care (01) ==
PROVIDERS: Emergency Provider Nurse Practitioner; PCP Nurse Practitioner Family
DX: J40 Bronchitis, not specified as acute or chronic (principal); Z87.891 Personal history of nicotine dependence; E11.9 Type 2 diabetes mellitus without complications; Z79.4 Long term (current) use of insulin; Z79.84 Long term (current) use of oral hypoglycemic drugs; E78.5 Hyperlipidemia, unspecified; I25.10 Atherosclerotic heart disease of native coronary artery without angina pectoris; Z95.5 Presence of coronary angioplasty implant and graft; Z79.82 Long term (current) use of aspirin
CPT/HCPCS: 71046; 82948; 94640; 99213; G0463

== ENCOUNTER 2024-06-03 15:54 | Emergency (ER) | payer OTHER, SELFPAY ==
--- NOTE | 2024-06-03 16:06 | ED.GENADULT ---
HPI - General Adult General Stated complaint: dizzy,upper stomach pressure,hard to get breath Time Seen by Provider: 06/03/24 16:19 Mode of arrival: ambulatory Limitations: no limitations History of Present Illness HPI narrative: 63-year-old male presents with concern for dizziness, vision changes, headache, stomach pressure in pain, shortness of breath when lying flat. He denies cough. Denies fever, body aches, chills, sweats. He has taken any medication for his symptoms. Related Data Home Medications ?Medication ?Instructions ?Recorded ?Confirmed ?Last Taken ?Type aspirin 81 mg chewable tablet 81 mg PO DAILY 02/09/20 11/04/22 Unknown History (Aspirin Childrens) atorvastatin 80 mg tablet 80 mg PO HS 02/09/20 11/04/22 Unknown History insulin detemir U-100 100 unit/mL 28 unit subcut HS 02/09/20 11/04/22 02/08/20 21:00 History (3 mL) subcutaneous pen (Levemir FlexTouch U-100 Insulin) metformin 1,000 mg tablet 1,000 mg PO BID 02/09/20 11/04/22 02/08/20 18:00 History liraglutide 0.6 mg/0.1 mL (18 mg/3 0.6 mg subcut DAILY 11/04/22 11/04/22 Unknown History mL) subcutaneous pen injector (Victoza 3-Denis) metoprolol succinate 25 mg 25 mg PO DAILY 11/04/22 11/04/22 Unknown History tablet,extended release 24 hr Allergies Allergy/AdvReac Type Severity Reaction Status Date / Time No Known Allergies Allergy Unknown Verified 11/04/22 14:06 Review of Systems Review of Systems: CONSTITUTIONAL: Denies malaise, chills, sweats, or fever. EYE: Reports vision changes CARDIOVASCULAR: Denies chest pain, palpitations, or edema. RESPIRATORY: Denies cough. Reports positional dyspnea. GASTROINTESTINAL: Reports abdominal pain, nausea. Denies vomiting, diarrhea, bloody, or mucous stools. MUSCULOSKELETAL: Denies back pain, joint pain, or myalgia. NEUROLOGIC: Denies numbness, weakness. Reports dizziness and headache. 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 There is no relevant family history pertinent to the presenting complaint Exam Narrative: GENERAL: Well-appearing, well-nourished, and in no acute distress. HEAD: Normocephalic, atraumatic. EYES: PERRLA, sclera clear, and EOMI. No nystagmus. ENT: Nares clear, turbinates pink, no rhinorrhea or epistaxis. NECK: Supple. CHEST: No respiratory distress. Clear to auscultation. No bony deformities, no asymmetry. Speaks in full sentences. HEART: Regular rate and rhythm. No murmur heard. Normal peripheral pulses. ABDOMEN: Soft, nondistended, normal active bowel sounds, no palpable masses. epigastric and lower right quadrant tender SKIN: Warm, dry, no visible rash. NEURO: Alert and oriented x3. No focal deficits. Cranial nerves II through XII grossly intact PSYCH: Normal mood and affect Course Course Emergency Course: Patient is aware of, understands and agrees be transferred to the emergency room. Patient agrees to proceed directly the emergency department. Portions of this record may have been created with voice recognition software Level of Care: Express Care Visit Vital Signs Vital signs: Reviewed. Transfer Transfered to: [place] Transportation: Other (Private vehicle) Transfer rationale: Dizziness Medical Decision Making MDM Narrative Medical decision making narrative: Patient is nontoxic appearing and in no acute distress Critical Care Time Critical Care Time Critical Care Time: No Discharge Plan Discharge Clinical Impression: Dizziness Patient Disposition: Acute Care Hospital Condition: Stable Patient Language: Ukrainian Prescriptions: No Action Victoza 3-Denis 0.6 mg/0.1 mL (18 mg/3 mL) pen injector 0.6 mg SUBCUT DAILY metoprolol succinate 25 mg tablet extended release 24 hr 25 mg PO DAILY doxycycline monohydrate 100 mg tablet 100 mg PO BID Qty: 14 0RF albuterol sulfate 90 mcg/actuation HFA aerosol inhaler 2 puff inhalation QID PRN (Reason: shortness of breath or wheezing) Qty: 6.7 0RF (DME) Aerochamber MV Spacer See Rx Instructions .Route Qty: 1 0RF Rx Instructions: As directed atorvastatin 80 mg Tablet 80 mg PO HS metformin 1,000 mg Tablet 1,000 mg PO BID aspirin [Aspirin Childrens] 81 mg Tablet,Chewable 81 mg PO DAILY Levemir FlexTouch U100 Insulin 100 unit/mL (3 mL) Insulin Pen 28 unit SUBCUT HS nitroglycerin [Nitrostat] 0.4 mg Tablet, Sublingual 0.4 mg sublingual Q5M PRN (Reason: Chest Pain) Qty: 25 0RF Follow-up/Referrals: Gus,RUDY Rodriguez [Primary Care Provider] - Time of Disposition: 16:33
[2024-06-03 16:12] VITALS: BP 137/80; PULSE 65; RESP 16; TEMP 36.2; O2SAT 96
--- NOTE | 2024-06-03 16:20 | PC.NURSE ---
PT SITTING ON EXAM TABLE. CHAO B/P 133/86, HR 65, 99% RA MEENU B/P 135/85, HR 68, 97% RA
== END 2024-06-03 16:30 | disposition short-term general hospital (02) ==
PROVIDERS: Emergency Provider Nurse Practitioner; PCP Physician Assistant Medical
DX: R42 Dizziness and giddiness (principal); Z87.891 Personal history of nicotine dependence; I25.10 Atherosclerotic heart disease of native coronary artery without angina pectoris; E11.9 Type 2 diabetes mellitus without complications; Z79.4 Long term (current) use of insulin; E78.5 Hyperlipidemia, unspecified; Z95.5 Presence of coronary angioplasty implant and graft; Z79.82 Long term (current) use of aspirin
CPT/HCPCS: 99213; G0463

== ENCOUNTER 2024-06-03 16:47 | Emergency (ER) | payer OTHER, SELFPAY ==
--- NOTE | ~2024-06-03 | CT_ITS ---
EXAMINATION: CT abdomen pelvis w con DATE: 06/03/2024 18:40 INDICATION: Epigastric and right lower quadrant pain TECHNIQUE: Computed tomography (CT) of the abdomen and pelvis was performed with 100 cc Omnipaque 350 intravenous contrast. The dose-length product was 601.50 mGy-cm. Automated exposure control and iterative reconstruction technique were employed. COMPARISON: No prior studies for comparison. FINDINGS: Lung bases are unremarkable. The liver, spleen, pancreas, adrenal glands and kidneys are un remarkable. Gallbladder is present. Nonobstructive bowel gas pattern. No significant vascular abnorma lity. No lymphadenopathy.. No hydronephrosis. No lymphadenopathy. The appendix is not positively visualized. There is no pericecal inflammatory change to suggest appe ndicitis. IMPRESSION: 1. No acute abdominal abnormality. Reviewed, dictated and finalized at location [facility]
[2024-06-03 16:59] VITALS: BP 149/93; PULSE 68; RESP 18; TEMP 36.6; O2SAT 98
--- NOTE | 2024-06-03 17:03 | ECG_ITS ---
Test Date: 2024-06-03 17:09:38 Measurements Intervals [place] Rate: 62 P: 18 TN: 189 QRS: -3 QRSD: 78 T: 30 QT: 385 QTc: 392 Interpretive Statements SINUS RHYTHM LOW QRS VOLTAGE IN PRECORDIAL LEADS [QRS DEFLECTION < 1.0 mV IN CHEST LEADS] No previous ECG available for comparison Electronically Signed On 06-04-2024 09:17:22 [employer]ANGER by Dion Tinoco M.D.
--- NOTE | 2024-06-03 17:04 | ED_ITS ---
HPI - Abdominal Pain General Chief Complaint: Abdominal Pain <Mignon Patten PA-C - Last Filed: 06/03/24 17:04> Stated Complaint: nausea, abdominal pain <Mignon Patten PA-C - Last Filed: 06/03/24 17:04> Time Seen by Provider: 06/03/24 18:06 <Mignon Patten PA-C - Last Filed: 06/03/24 17:04> Focused HPI: 63-year-old male with history of CAD, hyperlipidemia, type 2 diabetes, 2 cardiac stents that were placed several years ago presents to the emergency department for multiple medical complaints. Patient states for the past few days he has been having epigastric abdominal pain, orthopnea, right lower quadrant abdominal pain and headache. Patient went to urgent care was directed to the ED for evaluation. Denies head injury trauma, vision changes, focal numbness or weakness, chest pain, cough or congestion, fever, lower extremity edema. GENERAL: Well-appearing, well-nourished, and in no acute distress. HEAD: Normocephalic, atraumatic. CHEST: Clear to auscultation. ?No respiratory distress. HEART: Regular rate and rhythm.? NEURO: ?Alert and oriented x3. Patient screened in triage and initial orders placed.? ?Additional care and disposition to be based upon?diagnostic testing and treatment. <Mignon Patten PA-C - Last Filed: 06/03/24 17:04> Source: patient <Gian Gutiérrez MD - Last Filed: 06/03/24 19:15> Mode of arrival: ambulatory <Gian Gutiérrez MD - Last Filed: 06/03/24 19:15> Limitations: no limitations <Gian Gutiérrez MD - Last Filed: 06/03/24 19:15> History of Present Illness HPI narrative: 63-year-old with a history of hypertension, diabetes on insulin and metformin presents to the ER with the complaints of on and off abdominal pain for past 1 week and also complains of headache on the left temporal area. He denies any nausea vomiting or diarrhea. No history of fever or chills. <Gian Gutiérrez MD - Last Filed: 06/03/24 19:15> MD elicited complaint: abdominal pain <Gian Gutiérrez MD - Last Filed: 06/03/24 19:15> Pertinent past history: none <Gian Gutiérrez MD - Last Filed: 06/03/24 19:15> Onset (ago): week(s) (1) <Gian Gutiérrez MD - Last Filed: 06/03/24 19:15> Pain Consistency: intermittent <Gian Gutiérrez MD - Last Filed: 06/03/24 19:15> Location: diffuse <Gian Gutiérrez MD - Last Filed: 06/03/24 19:15> Severity: mild <Gian Gutiérrez MD - Last Filed: 06/03/24 19:15> Quality: aching <Gian Gutiérrez MD - Last Filed: 06/03/24 19:15> Radiation: none <Gian Gutiérrez MD - Last Filed: 06/03/24 19:15> Migration to: no migration <Gian Gutiérrez MD - Last Filed: 06/03/24 19:15> Exacerbating factors: nothing <Gian Gutiérrez MD - Last Filed: 06/03/24 19:15> Relieving factors: nothing <Gian Gutiérrez MD - Last Filed: 06/03/24 19:15> Related Data Home Medications: Home Medications ?Medication ?Instructions ?Recorded ?Confirmed ?Last Taken ?Type aspirin 81 mg chewable tablet 81 mg PO DAILY 02/09/20 11/04/22 Unknown History (Aspirin Childrens) atorvastatin 80 mg tablet 80 mg PO HS 02/09/20 11/04/22 Unknown History insulin detemir U-100 100 unit/mL 28 unit subcut HS 02/09/20 11/04/22 02/08/20 21:00 History (3 mL) subcutaneous pen (Levemir FlexTouch U-100 Insulin) metformin 1,000 mg tablet 1,000 mg PO BID 02/09/20 11/04/22 02/08/20 18:00 History liraglutide 0.6 mg/0.1 mL (18 mg/3 0.6 mg subcut DAILY 11/04/22 11/04/22 Unknown History mL) subcutaneous pen injector (Victoza 3-Denis) metoprolol succinate 25 mg 25 mg PO DAILY 11/04/22 11/04/22 Unknown History tablet,extended release 24 hr <Mignon Patten PA-C - Last Filed: 06/03/24 17:04> Allergies/Adverse Reactions: Allergies Allergy/AdvReac Type Severity Reaction Status Date / Time No Known Allergies Allergy Unknown Verified 06/03/24 16:48 <Mignon Patten PA-C - Last Filed: 06/03/24 17:04> Review of Systems 2 Review of Systems: All systems reviewed & are unremarkable except as noted in HPI and below <Gian Gutiérrez MD - Last Filed: 06/03/24 19:15> Constitutional: Constitutional: Reports no additional constitutional complaints <Gian Gutiérrez MD - Last Filed: 06/03/24 19:15> Eyes: Eyes: Reports no additional eye complaints <Gian Gutiérrez MD - Last Filed: 06/03/24 19:15> ENT: Reports system reviewed and no additional complaints, except as documented <Gian Gutiérrez MD - Last Filed: 06/03/24 19:15> Cardiovascular: Cardiovascular: Reports no additional cardiovascular complaints <Gian Gutiérrez MD - Last Filed: 06/03/24 19:15> Respiratory: Respiratory: Reports no additional respiratory complaints < Gian Gutiérrez MD - Last Filed: 06/03/24 19:15> Gastrointestinal: Gastrointestinal: Reports no additional gastrointestinal complaints <Gian Gutiérrez MD - Last Filed: 06/03/24 19:15> Genitourinary: Genitourinary: Reports no additional male genitourinary complaints <Gian Gutiérrez MD - Last Filed: 06/03/24 19:15> Musculoskeletal: Musculoskeletal: Reports no additional musculoskeletal complaints <Gian Gutiérrez MD - Last Filed: 06/03/24 19:15> Neurologic: Reports system reviewed and no additional complaints, except as documented <Gian Gutiérrez MD - Last Filed: 06/03/24 19:15> Psychiatric: Psychiatric: Reports no additional psychiatric complaints < Gian Gutiérrez MD - Last Filed: 06/03/24 19:15> Endocrine: Endocrine: Reports no additional endocrine complaints <Gian Gutiérrez MD - Last Filed: 06/03/24 19:15> Hematologic/Lymphatic: Hematologic/Lymphatic: Reports no additional hematologic/lymphatic complaints <Gian Gutiérrez MD - Last Filed: 06/03/24 19:15> Allergic/Immunologic: Allergic/Immunologic: Reports no additional allergic/immunologic complaints <Gian Gutiérrez MD - Last Filed: 06/03/24 19:15> PMFSH Past Medical History Medical History: Medical History (Updated 06/03/24 @ 19:14 by Gian Gutiérrez MD) CAD (coronary artery disease) of artery bypass graft Hyperlipidemia Diabetes mellitus Tear of pronator muscle of left upper extremity <Mignon Patten PA-C - Last Filed: 06/03/24 17:04> Surgical History Surgical History: Surgical History Stented coronary artery <Mignon Patten PA-C - Last Filed: 06/03/24 17:04> Family History Family History: Family History Father , age 65 Kidney failure Sibling Diabetes mellitus <Mignon Patten PA-C - Last Filed: 06/03/24 17:04> Social History Social History: Social History Smoking status: Former smoker Smoking end date: 11/06/16 Alcohol intake: current Drinks per week: 6 Substance use: never Substance use type: does not use Gender identity (if verbalized by the patient): Male Spiritual care concerns: No <Mignon Patten PA-C - Last Filed: 06/03/24 17:04> Exam 2 Narrative: GENERAL: Well-appearing, well-nourished, and in no acute distress. HEAD: Normocephalic, atraumatic. EYES: PERRLA and EOMI. ENT: Nares clear, no rhinorrhea or epistaxis. Mucous membranes moist. NECK: Supple. CHEST: Clear to auscultation. No respiratory distress. HEART: Regular rate and rhythm. No murmur heard. Normal peripheral pulses. ABDOMEN: Soft, nontender, nondistended, normal active bowel sounds. EXTREMITIES: Normal range of motion. No edema. SKIN: Warm, dry, no rash. NEURO: No focal deficits. Alert and oriented x3. PSYCH: Normal mood and affect. <Gian Gutiérrez MD - Last Filed: 06/03/24 19:15> Course Course Emergency Course: Patient comfortably sitting on the bed in no discomfort informed him and his about his lab work, CT findings. Cause of his abdominal pain is unknown. Advised him to take Bentyl as needed, follow with his primary doctor < Gian Gutiérrez MD - Last Filed: 06/03/24 19:15> Vital Signs Vital signs: Vital Signs Temperature 36.6 C 06/03/24 16:59 Pulse Rate 68 06/03/24 16:59 Respiratory Rate 18 06/03/24 16:59 Blood Pressure 149/93 H 06/03/24 16:59 Pulse Oximetry 98 06/03/24 16:59 Oxygen Delivery Room Air 06/03/24 16:59 Temperature 36.6 C 06/03/24 16:59 Pulse Rate 61 06/03/24 18:13 Respiratory Rate 18 06/03/24 18:13 Blood Pressure 156/100 H 06/03/24 18:13 Pulse Oximetry 100 06/03/24 18:13 Oxygen Delivery Room Air 06/03/24 16:59 <Mignon Patten PA-C - Last Filed: 06/03/24 17:04> Vital Signs Temperature 36.6 C 06/03/24 16:59 Pulse Rate 68 06/03/24 16:59 Respiratory Rate 18 06/03/24 16:59 Blood Pressure 149/93 H 06/03/24 16:59 Pulse Oximetry 98 06/03/24 16:59 Oxygen Delivery Room Air 06/03/24 16:59 Temperature 36.6 C 06/03/24 16:59 Pulse Rate 61 06/03/24 18:13 Respiratory Rate 18 06/03/24 18:13 Blood Pressure 156/100 H 06/03/24 18:13 Pulse Oximetry 100 06/03/24 18:13 Oxygen Delivery Room Air 06/03/24 16:59 <Gian Gutiérrez MD - Last Filed: 06/03/24 19:15> MDM - Abdominal Pain Differential Diagnosis Differential diagnosis: Likely abdominal pain, diverticulitis and pancreatitis <Gian Gutiérrez MD - Last Filed: 06/03/24 19:15> Medical Records Attestation: I reviewed the patient's medical records. <Gian Gutiérrez MD - Last Filed: 06/03/24 19:15> Lab Data Attestation: I reviewed the patient's lab results. <Gian Gutiérrez MD - Last Filed: 06/03/24 19:15> Result diagrams: 06/03/24 17:27 06/03/24 17:27 <Mignon Patten PA-C - Last Filed: 06/03/24 17:04> Labs: Lab Results 06/03/24 06/03/24 Range/Units 17:27 17:28 WBC 7.1 (4.5-10.0) K/mm3 RBC 5.63 (4.6-6.20) M/mm3 Hgb 16.2 (14.0-18.0) g/dL Hct 48.5 (42.0-52.0) % MCV 86.1 (80-100) fl MCH 28.8 (26-34) pg MCHC 33.4 (32-36) g/dl RDW 12.2 (11.5-14.5) % Plt Count 254 (150-375) k/mm3 MPV 9.5 (7.4-10.4) fl Immature Gran % (Auto) 0.9 H (0-0.5) % Neut % (Auto) 57.0 (45.5-73.1) % Lymph % (Auto) 33.3 (18.3-44.2) % [place] % (Auto) 7.0 (2.6-8.5) % Eos % (Auto) 1.1 (0-4.4) % Baso % (Auto) 0.7 (0.2-1.2) % Lymph # (Auto) 2.35 (0.9-3.2) K/mm3 [place] # (Auto) 0.5 (0.1-0.6) K/mm3 Eos # (Auto) 0.1 (0-0.3) K/mm3 Baso # (Auto) 0.1 (0.0-0.1) K/mm3 Abs Immat Gran (auto) 0.06 H (0.00-0.031) K/mm3 Absolute Neuts (auto) 4.0 (1.3-6.7) K/mm3 Absolute Nucleated RBC 0.000 (0.0-0.012) K/mm3 Nucleated RBC % 0.0 (0.0-0.2) % PT 13.2 (11.1-14.7) Seconds INR 1.0 APTT 37.3 H (22.3-36.8) Seconds Sodium 141 (137-145) mmol/L Potassium 4.1 (3.4-5.0) mmol/L Chloride 103 (98-107) mmol/L Carbon Dioxide 31 H (22-30) mmol/L Anion Gap 7 (4-12) mmol/L BUN 14 (9-20) mg/dL Creatinine 0.81 (0.7-1.3) mg/dL Estim Creat Clear Calc 75 ml/min Estimated GFR > 60 (59 - ) Glucose 90 (65-110) mg/dL Calcium 9.6 (8.4-10.2) mg/dL Total Bilirubin 0.8 (0.2-1.3) mg/dL AST 32 (17-59) U/L ALT 50 (6-50) U/L Alkaline Phosphatase 80 (38-126) U/L Troponin I < 0.012 (0.000-0.034) ng/mL NT-Pro-B Natriuret Pep < 20 (19.9-100) pg/mL Total Protein 8.0 (6.3-8.2) g/dL Albumin 4.7 (3.5-5.1) g/dL Lipase 85 (23-300) U/L Urine Color Yellow (Yellow) Urine Appearance Clear (Clear) Urine pH 5.5 (5.0-9.0) Ur Specific [place] 1.007 (1.001-1.035) Urine Protein Negative (Negative) mg/dL Urine Glucose (UA) Negative (Negative) mg/dL Urine Ketones Negative (Negative) mg/dL Ur Blood (Man) Negative (Negative) Urine Nitrate Negative (Negative) Urine Bilirubin Negative (Negative) Urine Urobilinogen 0.2 (<2.0) mg/dL Add Ur Microanalysis Reviewed Leukocyte Esterase Rfl 1+ H (Negative) MILLIE/UL Urine RBC 0-2 (0-2) /hpf Urine WBC 0-5 (0-3) /hpf Ur Squamous Epith Cells None seen (Few) /hpf Urine Bacteria None seen /hpf Urine Casts 0-2 <Mignon Patten PA-C - Last Filed: 06/03/24 17:04> Lab Results 06/03/24 06/03/24 Range/Units 17:27 17:28 WBC 7.1 (4.5-10.0) K/mm3 RBC 5.63 (4.6-6.20) M/mm3 Hgb 16.2 (14.0-18.0) g/dL Hct 48.5 (42.0-52.0) % MCV 86.1 (80-100) fl MCH 28.8 (26-34) pg MCHC 33.4 (32-36) g/dl RDW 12.2 (11.5-14.5) % Plt Count 254 (150-375) k/mm3 MPV 9.5 (7.4-10.4) fl Immature Gran % (Auto) 0.9 H (0-0.5) % Neut % (Auto) 57.0 (45.5-73.1) % Lymph % (Auto) 33.3 (18.3-44.2) % [place] % (Auto) 7.0 (2.6-8.5) % Eos % (Auto) 1.1 (0-4.4) % Baso % (Auto) 0.7 (0.2-1.2) % Lymph # (Auto) 2.35 (0.9-3.2) K/mm3 [place] # (Auto) 0.5 (0.1-0.6) K/mm3 Eos # (Auto) 0.1 (0-0.3) K/mm3 Baso # (Auto) 0.1 (0.0-0.1) K/mm3 Abs Immat Gran (auto) 0.06 H (0.00-0.031) K/mm3 Absolute Neuts (auto) 4.0 (1.3-6.7) K/mm3 Absolute Nucleated RBC 0.000 (0.0-0.012) K/mm3 Nucleated RBC % 0.0 (0.0-0.2) % PT 13.2 (11.1-14.7) Seconds INR 1.0 APTT 37.3 H (22.3-36.8) Seconds Sodium 141 (137-145) mmol/L Potassium 4.1 (3.4-5.0) mmol/L Chloride 103 (98-107) mmol/L Carbon Dioxide 31 H (22-30) mmol/L Anion Gap 7 (4-12) mmol/L BUN 14 (9-20) mg/dL Creatinine 0.81 (0.7-1.3) mg/dL Estim Creat Clear Calc 75 ml/min Estimated GFR > 60 (59 - ) Glucose 90 (65-110) mg/dL Calcium 9.6 (8.4-10.2) mg/dL Total Bilirubin 0.8 (0.2-1.3) mg/dL AST 32 (17-59) U/L ALT 50 (6-50) U/L Alkaline Phosphatase 80 (38-126) U/L Troponin I < 0.012 (0.000-0.034) ng/mL NT-Pro-B Natriuret Pep < 20 (19.9-100) pg/mL Total Protein 8.0 (6.3-8.2) g/dL Albumin 4.7 (3.5-5.1) g/dL Lipase 85 (23-300) U/L Urine Color Yellow (Yellow) Urine Appearance Clear (Clear) Urine pH 5.5 (5.0-9.0) Ur Specific [place] 1.007 (1.001-1.035) Urine Protein Negative (Negative) mg/dL Urine Glucose (UA) Negative (Negative) mg/dL Urine Ketones Negative (Negative) mg/dL Ur Blood (Man) Negative (Negative) Urine Nitrate Negative (Negative) Urine Bilirubin Negative (Negative) Urine Urobilinogen 0.2 (<2.0) mg/dL Add Ur Microanalysis Reviewed Leukocyte Esterase Rfl 1+ H (Negative) MILLIE/UL Urine RBC 0-2 (0-2) /hpf Urine WBC 0-5 (0-3) /hpf Ur Squamous Epith Cells None seen (Few) /hpf Urine Bacteria None seen /hpf Urine Casts 0-2 <Gian Gutiérrez MD - Last Filed: 06/03/24 19:15> Imaging Data Radiologist's impression: ITS Impressions Abdomen/Pelvis CT 06/03/24 18:41 IMPRESSION: 1. No acute abdominal abnormality. <Mignon Patten PA-C - Last Filed: 06/03/24 17:04> ITS Impressions Abdomen/Pelvis CT 06/03/24 18:41 IMPRESSION: 1. No acute abdominal abnormality. <Gian Gutiérrez MD - Last Filed: 06/03/24 19:15> Discharge Plan Discharge Clinical Impression: Abdominal pain Qualifiers: Abdominal location: generalized Qualified Code(s): R10.84 - Generalized abdominal pain <Mignon Patten PA-C - Last Filed: 06/03/24 17:04> Patient Disposition: Home, Self-Care <Mignon Patten PA-C - Last Filed: 06/03/24 17:04> Condition: Stable <MATTEO Jose Last Filed: 06/03/24 17:04> Instructions: Abdominal Pain (ED) <Mignon Patten PA-C - Last Filed: 06/03/24 17:04> Patient Language: Tunisian <Mignon Patten PA-C - Last Filed: 06/03/24 17:04> Prescriptions: New dicyclomine 20 mg tablet 20 mg PO QID PRN (Reason: abdominal pain) Qty: 20 0RF No Action Victoza 3-Denis 0.6 mg/0.1 mL (18 mg/3 mL) pen injector 0.6 mg SUBCUT DAILY metoprolol succinate 25 mg tablet extended release 24 hr 25 mg PO DAILY doxycycline monohydrate 100 mg tablet 100 mg PO BID Qty: 14 0RF albuterol sulfate 90 mcg/actuation HFA aerosol inhaler 2 puff inhalation QID PRN (Reason: shortness of breath or wheezing) Qty: 6.7 0RF (DME) Aerochamber MV Spacer See Rx Instructions .Route Qty: 1 0RF Rx Instructions: As directed atorvastatin 80 mg Tablet 80 mg PO HS metformin 1,000 mg Tablet 1,000 mg PO BID aspirin [Aspirin Childrens] 81 mg Tablet,Chewable 81 mg PO DAILY Levemir FlexTouch U100 Insulin 100 unit/mL (3 mL) Insulin Pen 28 unit SUBCUT HS nitroglycerin [Nitrostat] 0.4 mg Tablet, Sublingual 0.4 mg sublingual Q5M PRN (Reason: Chest Pain) Qty: 25 0RF <Mignon Patten PA-C - Last Filed: 06/03/24 17:04> Follow-up/Referrals: Manoj,RUDY Rodriguez [Primary Care Provider] - <Mignon Patten PA-C - Last Filed: 06/03/24 17:04> Time of Disposition: 19:15 <Mignon Patten PA-C - Last Filed: 06/03/24 17:04> 19:15 <Gian Gutiérrez MD - Last Filed: 06/03/24 19:15>
[2024-06-03 17:35] LABS: Basophils Absolute Auto 0.1 K/mm3 (0.0-0.1); Basophils Percent Auto 0.7 % (0.2-1.2); Eosinophils Absolute Auto 0.1 K/mm3 (0-0.3); Eosinophils Percent Auto 1.1 % (0-4.4); Hematocrit 48.5 % (42.0-52.0); Hemoglobin 16.2 g/dL (14.0-18.0); Immature Granulocyte Absolute 0.06 K/mm3 (0.00-0.031); Immature Granulocyte Percent A 0.9 % (0-0.5); Lymphocytes Absolute Auto 2.35 K/mm3 (0.9-3.2); Lymphocytes Percent Auto 33.3 % (18.3-44.2); Mean Corpuscular HGB Conc 33.4 g/dl (32-36); Mean Corpuscular Hemoglobin 28.8 pg (26-34); Mean Corpuscular Volume 86.1 fl (80-100); Mean Platelet Volume 9.5 fl (7.4-10.4); Monocytes Absolute Auto 0.5 K/mm3 (0.1-0.6); Platelet Count Result 254 k/mm3 (150-375); Red Blood Count 5.63 M/mm3 (4.6-6.20); Red Cell Distribution Width 12.2 % (11.5-14.5); White Blood Count 7.1 K/mm3 (4.5-10.0)
[2024-06-03 17:45] LABS: Alanine Aminotransferase 50 U/L (6-50); Albumin Level 4.7 g/dL (3.5-5.1); Alkaline Phosphatase 80 U/L (38-126); Anion Gap 7 mmol/L (4-12); Aspartate Amino Transferase 32 U/L (17-59); Bilirubin,Total 0.8 mg/dL (0.2-1.3); Blood Urea Nitrogen 14 mg/dL (9-20); Calcium 9.6 mg/dL (8.4-10.2); Carbon Dioxide 31 mmol/L (22-30); Chloride 103 mmol/L (98-107); Estimated CRCL calculation 75 ml/min; Estimated Glomerular Filt Rate > 60; Glucose 90 mg/dL (65-110); Lipase 85 U/L (23-300); Potassium 4.1 mmol/L (3.4-5.0); Sodium 141 mmol/L (137-145)
[2024-06-03 17:53] LABS: Add Urine Microscopic? YES; Appearance Urine Clear (Clear); Bacteria Urine None Seen /hpf; Bilirubin Urine Negative (Negative); Blood Urine Negative (Negative); Color Urine Yellow (Yellow); Glucose Urine UA Negative (Negative); Ketones Urine Negative (Negative); Leukocyte Esterase Ur 1+ LEU/UL (Negative); Need Manual Microscopic Reviewed; Nitrate Urine Negative (Negative); Non Pathogenic Casts 0-2; Protein Urine Negative (Negative); RBC Urine 0-2 /hpf (0-2); Specific Grav Ur 1.007 (1.001-1.035); Squamous Epithelial Cell Urine None Seen /hpf (Few); Urobilinogen Urine 0.2 mg/dL (<2.0); WBC Urine 0-5 /hpf (0-3); pH Urine 5.5 (5.0-9.0)
[2024-06-03 17:54] LABS: Prothrombin Time 13.2 Seconds (11.1-14.7)
[2024-06-03 17:55] LABS: Partial Thromboplastin Time 37.3 Seconds (22.3-36.8)
[2024-06-03 17:57] LABS: Troponin I < 0.012 ng/mL (0.000-0.034)
[2024-06-03 18:13] VITALS: BP 156/100; PULSE 61; RESP 18; O2SAT 100
[2024-06-03 18:15] LABS: NT Pro B Type Natriuretic Pept < 20 pg/mL (19.9-100)
[2024-06-03 19:47] VITALS: BP 143/82; PULSE 73; RESP 18; O2SAT 100
== END 2024-06-03 19:48 | disposition home or self-care (01) ==
PROVIDERS: Physician Assistant; Emergency Provider Family Medicine; PCP Physician Assistant Medical
DX: R10.84 Generalized abdominal pain (principal); I25.10 Atherosclerotic heart disease of native coronary artery without angina pectoris; E78.5 Hyperlipidemia, unspecified; E11.9 Type 2 diabetes mellitus without complications; Z79.4 Long term (current) use of insulin; Z79.84 Long term (current) use of oral hypoglycemic drugs; R06.01 Orthopnea
CPT/HCPCS: 36415; 74177; 80053; 81001; 83690; 83880; 84484; 85025; 85610; 85730; 87086; 93005; 99284; Q9967